=== PATIENT | male | born 1990 | race Two or more races ===

== ENCOUNTER 2024-01-04 22:26 | Emergency (ER) | payer OTHER ==
[~2024-01-04] VITALS: Ht 180.3 cm; Wt 137.0 kg
[~2024-01-04 22:26] MED LIST: PREDNISONE20 MG
[2024-01-04] MEDS ORDERED: GLUMETZA1000 MG PO (22:35)
[2024-01-05] MEDS ORDERED: RINGERS SOLUTION,LACTATED 1,000 ML IV STA (01:39)
[2024-01-05] MEDS ORDERED: MEPERIDINE HCL/PF 50 MG/ML VIAL IM STA (01:40)
[2024-01-05] MEDS ORDERED: PROMETHAZINE HCL 50 MG/ML AMPUL IM STA (01:41)
[2024-01-05 01:56] LABS: HEMATOCRIT 43.9 % (39.0-48.0); MEAN CELL VOLUME 90.4 fL (80.0-100.00); MEAN CORPUSCULAR HEMOGLOBIN 30.9 pg (27.00-32.0); MEAN CORPUSCULAR HGB CONC 34.2 g/dl (32.0-36.0); PLATELET COUNT 246 K/uL (150-450); RED BLOOD COUNT 4.86 M/uL (4.00-6.00); RED CELL DISTRIBUTION WIDTH 12.6 % (11.5-14.5)
[2024-01-05] MEDS ORDERED: PROMETHAZINE HCL 50 MG/ML AMPUL IM ONE (01:59)
[2024-01-05 02:13] LABS: INR 1.18; PARTIAL THROMBOPLASTIN TIME 29.9 SECONDS (22.0-34.0); PROTHROMBIN TIME 12.7 SECONDS (9.0-11.5)
[2024-01-05 02:29] LABS: BILIRUBIN TOTAL 0.54 mg/dL (0.3-1.2); CREATININE SERUM 1.18 mg/dL (0.70-1.30); GFR 70.25; GLOBULINA 3.8 G/DL (2.4-3.5); POTASSIUM 4.55 mEq/L (3.5-5.1); TOTAL PROTEIN 7.8 gm/dL (6.4-8.2)
== END 2024-01-05 04:22 | disposition home or self-care (01) ==
LOC: ER 22:28
DX: K59.01 Slow transit constipation (principal)